=== PATIENT | female | born 1975 | race African-American/Black ===

== ENCOUNTER 2017-08-27 14:10 | Emergency (ER) | payer MEDICAID ==
[~2017-08-27] VITALS: Ht 167.6 cm; Wt 95.0 kg
[2017-08-27] MEDS ORDERED: ACETAMINOPHEN WITH CODEINE 300/30MG TABLET PO ONE (16:45)
[2017-08-27 18:27] VITALS: BP 129/74
== END 2017-08-27 18:29 | disposition home or self-care (01) ==
LOC: ER 15:40
DX: S80.01XA Contusion of right knee, initial encounter (principal); I10 Essential (primary) hypertension; Y04.0XXA Assault by unarmed brawl or fight, initial encounter; Y93.89 Activity, other specified; Y92.89 Other specified places as the place of occurrence of the external cause
CPT/HCPCS: 73562; 81025; 99284

== ENCOUNTER 2021-01-31 19:41 | Emergency (ER) | payer MEDICAID ==
[~2021-01-31] VITALS: Ht 162.6 cm; Wt 104.0 kg
[2021-01-31] MEDS ORDERED: CEPH500C2 MT (22:55)
[2021-01-31] MEDS ORDERED: SULF-292 MT (22:57)
[2021-01-31] MEDS ORDERED: IBUP-2030 MT (22:59)
[2021-01-31] MEDS ORDERED: KETOROLAC 60MG/2ML VIAL IM ONE (23:00)
[2021-02-01 00:07] VITALS: BP 145/92
== END 2021-02-01 00:08 | disposition home or self-care (01) ==
LOC: ER 19:41
DX: L02.219 Cutaneous abscess of trunk, unspecified (principal); L02.412 Cutaneous abscess of left axilla; I10 Essential (primary) hypertension
CPT/HCPCS: 10060; 96372; 99283; J1885; Z7610